=== PATIENT | female | born 1965 | race African-American/Black ===

== ENCOUNTER 2017-04-27 22:37 | Emergency (ER) | payer MEDICARE ==
[~2017-04-27] VITALS: Ht 170.2 cm; Wt 88.0 kg
[2017-04-27 22:39] VITALS: BP 169/95
[2017-04-27] MEDS ORDERED: DIAZEPAM 5 MG TABLET ONE (23:05)
[2017-04-27] MEDS ORDERED: KETOROLAC 30 MG/1 ML ONE (23:05)
[2017-04-27] MEDS ORDERED: KETOROLAC 30 MG/1 ML IM ONE (23:30)
[2017-04-27] MEDS ORDERED: DIAZEPAM 5 MG TABLET PO ONE (23:30)
== END 2017-04-28 00:01 | disposition home or self-care (01) ==
LOC: ED 23:51
DX: M54.32 Sciatica, left side (principal); K21.9 Gastro-esophageal reflux disease without esophagitis; I10 Essential (primary) hypertension; M19.90 Unspecified osteoarthritis, unspecified site; Z90.710 Acquired absence of both cervix and uterus
CPT/HCPCS: 96372; 99283; J1885